=== PATIENT | female | born 1950 | race Caucasian/White ===

== ENCOUNTER → 2016-09-23 | Outpatient (CLI) | payer BC ==
[~2016-09-23] MED LIST: DENOSUMAB 60 MG/ML 1 ML SYRINGE SQ ONE
== END | disposition home or self-care (01) ==
LOC: PROCWHC3 10:18
PROVIDERS: ATTEND Family Medicine
DX: M81.0 Age-related osteoporosis without current pathological fracture (principal)
CPT/HCPCS: 96372; J0897

== ENCOUNTER → 2017-03-24 | Outpatient (CLI) | payer BC ==
[2017-03-24 10:35] VITALS: BP 143/72; PULSE 77; RESP 18; TEMP 98.4
== END | disposition home or self-care (01) ==
LOC: PROCWHC3 10:24
PROVIDERS: ATTEND Family Medicine
DX: M81.0 Age-related osteoporosis without current pathological fracture (principal)
CPT/HCPCS: 96372; J0897

== ENCOUNTER → 2017-08-04 | Day surgery (SDC) | payer BC ==
[2017-08-02 10:26] VITALS: BMI 24.7
[~2017-08-04] MED LIST changes: -DENOSUMAB 60 MG/ML 1 ML SYRINGE SQ ONE; +LACTATED RINGERS 1,000 ML IV ONE; +LACTATED RINGERS 1,000 ML IV SCH; +LIDOCAINE 1% 20 ML VIAL (10MG/ML) FOR IV START INTRADERMA PRN; +LIDOCAINE 1% INJ 10MG/ML (20 ML MDV) ONE; +PROPOFOL 10 MG/ML 20 ML VIAL IV ONE
[2017-08-04 07:48] VITALS: BP 136/78; PULSE 77; RESP 18; TEMP 98.1
--- NOTE | 2017-08-04 09:41 | PCN ---
PROCEDURE NOTE DATE OF SERVICE: 08/04/2017 BRIEF HISTORY: The patient is a 66-year-old pleasant white female, scheduled for an elective upper endoscopy as well as colonoscopy as part of evaluation of longstanding history of GERD and prior history of colon polyps. PROCEDURE PERFORMED: 1. EGD with biopsy. 2. Colonoscopy. PREOPERATIVE DIAGNOSES: 1. Gastroesophageal reflux disease. 2. History of colon polyps. ANESTHESIA: IV sedation per Anesthesia. DESCRIPTION OF PROCEDURE: After informed consent was obtained from the patient, she was brought to the endoscopy unit. IV conscious sedation was administered by Anesthesia and continuous monitoring. Initially upper endoscopy was done, the Olympus GIF-140 video endoscope was inserted into the mouth. Esophagus intubated without any difficulty and was gradually advanced into the stomach and duodenum and carefully examined. Bulb and the second part of the duodenum appeared normal. The scope at this time was withdrawn to the stomach, adequately insufflated with air and upon careful examination, the mucosa in the antrum had mild gastritis. Biopsies for H pylori were done. The body of the stomach appeared normal and on retroflexion the cardia and the fundus appeared normal. Scope was then withdrawn to the esophagus. The GE junction was located at 40 cm from the incisors. There were 2 superficial erosions consistent with LA grade A B reflux esophagitis. The rest of the esophagus appeared normal. The patient tolerated the procedure well. She continued to remain sedated. At this time, a colonoscopy was done. Initial digital rectal examination was normal. Olympus pediatric colonoscope was then inserted in the rectum, gradually advanced into the cecum without any difficulty and careful examination was performed as the scope was gradually being withdrawn. The ileocecal valve and appendiceal orifice were visualized and appeared normal. The prep was excellent. Mucosa of the cecum, ascending colon, transverse colon, descending colon, sigmoid colon, and rectum appeared normal. There were scattered sigmoid diverticulosis seen in the rectum. Retroflexion was performed. No lesions were noted. The patient tolerated the procedure well. IMPRESSION: 1. Upper endoscopy revealed mild antral gastritis and LA grade A B reflux esophagitis. 2. Colonoscopy with scattered sigmoid diverticulosis, but no evidence of colorectal neoplasia. RECOMMENDATIONS: Findings of this examination were discussed with the patient as well as her family. She was advised to follow up with the biopsy results. She can have a repeat surveillance colonoscopy in 5 years. MMODL / IJN: [id number] /
== END ==
LOC: ORWHC2ENDO 07:35
PROVIDERS: ATTEND Internal Medicine Gastroenterology
DX: Z12.11 Encounter for screening for malignant neoplasm of colon (principal); K57.30 Diverticulosis of large intestine without perforation or abscess without bleeding; K29.50 Unspecified chronic gastritis without bleeding; K21.9 Gastro-esophageal reflux disease without esophagitis; Z86.010 Personal history of colon polyps; Z79.2 Long term (current) use of antibiotics; Z79.82 Long term (current) use of aspirin; Z79.899 Other long term (current) drug therapy
CPT/HCPCS: 88305; 88342; 43239; J2001; J2704; G0105

== ENCOUNTER → 2017-08-25 | Outpatient (CLI) | payer MEDICARE, BC ==
--- NOTE | 2017-08-28 11:45 | MM ---
Reason for exam: screening (asymptomatic). Last mammogram was performed 1 year ago. History: Patient is postmenopausal. Benign excisional biopsy of the right breast, December 15, 1999. Excisional biopsy of the left breast. 2 excisional biopsies of the right breast. Took hormonal contraceptives for 8 years beginning at age 23. Took estrogen for 1 year beginning at age 49. Physical Findings: A clinical breast exam by your physician is recommended on an annual basis and results should be correlated with mammographic findings. MG 3D Screening Mammo W/Cad Bilateral CC and MLO view(s) were taken. Prior study comparison: August 11, 2016, bilateral MG screening mammo w CAD. August 10, 2015, bilateral MG screening mammo w CAD. The breast tissue is heterogeneously dense. This may lower the sensitivity of mammography. There is no discrete abnormality. No significant changes when compared with prior studies. ASSESSMENT: Negative, BI-RAD 1 RECOMMENDATION: Routine screening mammogram of both breasts in 1 year.
== END | disposition home or self-care (01) ==
LOC: RADMAMWWP 08:17
PROVIDERS: ATTEND Family Medicine
DX: Z12.31 Encounter for screening mammogram for malignant neoplasm of breast (principal)
CPT/HCPCS: 77063; 77067

== ENCOUNTER → 2017-09-26 | Outpatient (CLI) | payer MEDICARE, BC ==
[~2017-09-26] MED LIST changes: +DENOSUMAB 60 MG/ML 1 ML SYRINGE SQ NR; -LACTATED RINGERS 1,000 ML IV ONE; -LACTATED RINGERS 1,000 ML IV SCH; -LIDOCAINE 1% 20 ML VIAL (10MG/ML) FOR IV START INTRADERMA PRN; -LIDOCAINE 1% INJ 10MG/ML (20 ML MDV) ONE; -PROPOFOL 10 MG/ML 20 ML VIAL IV ONE
[2017-09-26 10:46] VITALS: BP 136/70; PULSE 67; RESP 16
== END | disposition home or self-care (01) ==
LOC: PROCWHC3 10:29
PROVIDERS: ATTEND Family Medicine
DX: M81.0 Age-related osteoporosis without current pathological fracture (principal)
CPT/HCPCS: 96372; J0897

== ENCOUNTER → 2018-01-26 | Outpatient (CLI) | payer MEDICARE, BC ==
--- NOTE | 2018-01-26 12:27 | XR ---
EXAMINATION TYPE: XR pelvis complete DATE OF EXAM: 01/26/2018 COMPARISON: NONE HISTORY: Nerve stimulator of the urinary bladder placement. TECHNIQUE: Frontal and lateral views of the pelvis were obtained. FINDINGS: There is no acute fracture/dislocation evident in the pelvis. The overlying soft tissue a ppears unremarkable. 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 Generator for a nerve stimula tor device is seen within the subcutaneous tissues overlying the posterior sacrum and right paracentr ally on the frontal image with its distal tip in the right paracentral presacral space. IMPRESSION: Right posterior lateral urinary bladder nerve stimulator with the generator superficially located and the distal lead in the right paracentral presacral space.
== END ==
LOC: RADXRMAIN 11:31
PROVIDERS: ATTEND Urology
DX: R39.15 Urgency of urination (principal)

== ENCOUNTER → 2018-03-28 | Outpatient (CLI) | payer MEDICARE, BC ==
[2018-03-28 11:13] VITALS: BP 118/72; PULSE 68; RESP 16; TEMP 97.8
== END | disposition home or self-care (01) ==
LOC: PROCWHC3 10:48
PROVIDERS: ATTEND Family Medicine
DX: M81.8 Other osteoporosis without current pathological fracture (principal)
CPT/HCPCS: 96372; J0897

== ENCOUNTER → 2018-09-10 | Outpatient (CLI) | payer MEDICARE, BC ==
--- NOTE | 2018-09-12 08:02 | MM ---
Reason for exam: screening (asymptomatic). Last mammogram was performed 1 year and 1 month ago. History: Patient is postmenopausal. Benign excisional biopsy of the right breast, December 15, 1999. Excisional biopsy of the left breast. 2 excisional biopsies of the right breast. Took hormonal contraceptives for 8 years beginning at age 23. Took estrogen for 1 year beginning at age 49. Physical Findings: A clinical breast exam by your physician is recommended on an annual basis and results should be correlated with mammographic findings. MG 3D Screening Mammo W/Cad Bilateral CC and MLO view(s) were taken. Prior study comparison: August 25, 2017, bilateral MG 3d screening mammo w/cad. August 11, 2016, bilateral MG screening mammo w CAD. The breast tissue is heterogeneously dense. This may lower the sensitivity of mammography. There is chronic nodularity bilaterally. There is no dominant lesion. There is no discrete abnormality. No significant changes when compared with prior studies. ASSESSMENT: Benign, BI-RAD 2 RECOMMENDATION: Routine screening mammogram of both breasts in 1 year.
== END | disposition home or self-care (01) ==
LOC: RADMAMWWP 13:11
PROVIDERS: ATTEND Family Medicine
DX: Z12.31 Encounter for screening mammogram for malignant neoplasm of breast (principal)
CPT/HCPCS: 77063; 77067

== ENCOUNTER → 2018-10-08 | Outpatient (CLI) | payer MEDICARE, BC ==
[~2018-10-08] MED LIST changes: -DENOSUMAB 60 MG/ML 1 ML SYRINGE SQ NR; +DENOSUMAB 60 MG/ML 1 ML SYRINGE SQ ONE
[2018-10-08 14:36] VITALS: BP 115/70; PULSE 80; RESP 16; TEMP 98.1
== END | disposition home or self-care (01) ==
LOC: PROCWHC3 14:00
PROVIDERS: ATTEND Family Medicine
DX: M81.0 Age-related osteoporosis without current pathological fracture (principal)
CPT/HCPCS: 96372; J0897

== ENCOUNTER → 2019-04-11 | Outpatient (CLI) | payer MEDICARE, BC ==
[2019-04-11 10:39] VITALS: BP 137/76; PULSE 71; RESP 15; TEMP 97.9
== END | disposition home or self-care (01) ==
LOC: PROCWHC3 10:31
PROVIDERS: ATTEND Family Medicine
DX: M81.0 Age-related osteoporosis without current pathological fracture (principal)
CPT/HCPCS: 96372; J0897

== ENCOUNTER → 2019-10-03 | Outpatient (CLI) | payer MEDICARE, BC ==
--- NOTE | 2019-10-04 08:26 | MM ---
Reason for exam: additional evaluation requested from abnormal screening. Last mammogram was performed less than 1 month ago. History: Patient is postmenopausal and has history of other cancer at age 69. Benign excisional biopsy of the right breast, December 15, 1999. Excisional biopsy of the left breast. 2 excisional biopsies of the right breast. Took hormonal contraceptives for 8 years beginning at age 23. Took estrogen for 1 year beginning at age 49. Physical Findings: Nurse did not find any significant physical abnormalities on exam. MG 3D Work Up W/Cad LT Spot compression CC, spot compression MLO, and ML view(s) were taken of the left breast. Prior study comparison: September 19, 2019, bilateral MG 3d screening mammo w/cad. September 10, 2018, bilateral MG 3d screening mammo w/cad. August 25, 2017, bilateral MG 3d screening mammo w/cad. August 11, 2016, bilateral MG screening mammo w CAD. August 10, 2015, bilateral MG screening mammo w CAD. June 21, 2012, bilateral digital screening mammo w/CAD. The breast tissue is heterogeneously dense. This may lower the sensitivity of mammography. Central 12 o'clock area of focal asymmetry becomes less defined on spot 3D with an appearance similar to prior exams. Precautionary 6 month follow up recommended. These results were verbally communicated with the patient and result sheet given to the patient on 10/03/19. ASSESSMENT: Probably benign, BI-RAD 3 RECOMMENDATION: Follow-up diagnostic mammogram of the left breast in 6 months.
== END | disposition home or self-care (01) ==
LOC: RADMAMWWP 14:47
PROVIDERS: ATTEND Family Medicine
DX: R92.8 Other abnormal and inconclusive findings on diagnostic imaging of breast (principal)
CPT/HCPCS: 77065; G0279; 77061

== ENCOUNTER → 2019-10-14 | Outpatient (CLI) | payer MEDICARE, BC ==
[~2019-10-14] MED LIST changes: +DENOSUMAB 60 MG/ML 1 ML SYRINGE SQ NR; -DENOSUMAB 60 MG/ML 1 ML SYRINGE SQ ONE
[2019-10-14 10:48] VITALS: BP 121/70; PULSE 73; RESP 18; TEMP 98
== END | disposition home or self-care (01) ==
LOC: PROCWHC3 10:30
PROVIDERS: ATTEND Family Medicine
DX: M81.0 Age-related osteoporosis without current pathological fracture (principal)
CPT/HCPCS: 96372

== ENCOUNTER → 2020-01-28 | Outpatient (CLI) | payer MEDICARE, BC ==
[2020-01-28 16:30] LABS: Potassium 4.5 mmol/L (3.5-5.1)
[2020-01-28 16:31] LABS: African American GFR (CKD) >90 (>60 ml/min/1.73 sqM); Anion Gap 6 mmol/L; Blood Urea Nitrogen 24 mg/dL (7-17); Carbon Dioxide 29 mmol/L (22-30); Chloride 102 mmol/L (98-107); Glucose 93 mg/dL (74-99); Non-African American GFR(CKD) >90 (>60 ml/min/1.73 sqM); Sodium 137 mmol/L (137-145)
--- NOTE | 2020-01-29 08:07 | CT ---
EXAMINATION TYPE: CT urogram wo/w con DATE OF EXAM: 01/28/2020 HISTORY: Hematuria. CT DLP: 912.4mGycm Automated Exposure Control for Dose Reduction was Utilized. CONTRAST: CT scan of the abdomen and pelvis is performed without oral and without and with IV Contrast, patient injected with 100ml mL of Isovue 300. Urogram protocol with 3-D reconstructed images created on a in dependent workstation and reviewed. COMPARISON: None. FINDINGS: KUB: Noncontrast images show no renal calculi bilaterally. Postcontrast images show symmetrical joint uptake and excretion without hydronephrosis seen bilaterally. There is subcentimeter 4 mm hypodense focus laterally left kidney series 10 image 35 2 small to further characterize presumed benign. Visua lized portion of both ureters show slight tortuous course without obstructing mass or calculus. Bladd er not greatly distended without suspicious mass or wall thickening. LUNG BASES: Dependent atelectasis. LIVER/GB: No significant abnormality is appreciated. PANCREAS: No significant abnormality is seen. SPLEEN: No significant abnormality is seen. ADRENALS: No significant abnormality is seen. BOWEL: Left and Sigmoid colonic diverticulosis. Persistent bowel dilatation. UTERUS/ADNEXA: Uterus surgically absent or markedly atrophic. Surgical clips presacral region noted. LYMPH NODES: No greater than 1cm abdominal or pelvic lymph nodes are appreciated. OSSEOUS STRUCTURES: Grade 1 anterolisthesis L4 on L5. Mild disc space narrowing L3-L4 and L4-L5 level s. Posterior disc herniations L4-L5 and L5-S1 level effacing anterior thecal sac. OTHER: No significant additional abnormality is seen. IMPRESSION: Source of hematuria is not identified.
== END | disposition home or self-care (01) ==
LOC: RADCTMAIN 15:51
PROVIDERS: ATTEND Urology
DX: R31.29 Other microscopic hematuria (principal)
CPT/HCPCS: 80048; 74178; 36415; 74400; Q9967

== ENCOUNTER → 2020-03-23 | Outpatient (CLI) | payer MEDICARE, BC ==
--- NOTE | 2020-03-23 15:06 | MM ---
Reason for exam: follow-up at short interval from prior study. Last mammogram was performed 6 months ago. History: Patient is postmenopausal and has history of other cancer at age 69. Benign excisional biopsy of the right breast, December 15, 1999. Excisional biopsy of the left breast. 2 excisional biopsies of the right breast. Took hormonal contraceptives for 8 years beginning at age 23. Took estrogen for 1 year beginning at age 49. Physical Findings: Nurse did not find any significant physical abnormalities on exam. MG 3D Diag Mammo W/Cad LT CC and MLO view(s) were taken of the left breast. Prior study comparison: October 03, 2019, left breast MG 3d work up w/cad LT. September 19, 2019, bilateral MG 3d screening mammo w/cad. The breast tissue is heterogeneously dense. This may lower the sensitivity of mammography. Finding: There is stable architectural distortion in the middle, central position of the left breast consistent with known excisional changes. Asymmetric breast tissue in the left breast is stable. There is no discrete abnormality. These results were verbally communicated with the patient and result sheet given to the patient on 03/23/20. ASSESSMENT: Benign, BI-RAD 2 RECOMMENDATION: Return to routine screening mammogram schedule for both breasts. Back on schedule.
== END | disposition home or self-care (01) ==
LOC: RADMAMWWP 08:15
PROVIDERS: ATTEND Family Medicine
DX: R92.8 Other abnormal and inconclusive findings on diagnostic imaging of breast (principal)
CPT/HCPCS: 77065; G0279; 77061

== ENCOUNTER → 2020-06-05 | Outpatient (CLI) | payer MEDICARE, BC ==
[~2020-06-05] MED LIST changes: -DENOSUMAB 60 MG/ML 1 ML SYRINGE SQ NR; +DENOSUMAB 60 MG/ML 1 ML SYRINGE SQ ONE
[2020-06-05 11:37] VITALS: BP 120/67; PULSE 63; RESP 16; TEMP 98
== END | disposition home or self-care (01) ==
LOC: PROCWHC3 11:27
PROVIDERS: ATTEND Family Medicine
DX: M81.8 Other osteoporosis without current pathological fracture (principal)
CPT/HCPCS: 96372; J0897

== ENCOUNTER → 2020-10-29 | Outpatient (CLI) | payer MEDICARE, BC ==
--- NOTE | 2020-11-02 11:08 | MM ---
Reason for exam: screening (asymptomatic). Last mammogram was performed 7 months ago. History: Patient is postmenopausal and has history of other cancer at age 69. Benign excisional biopsy of the right breast, December 15, 1999. Excisional biopsy of the left breast. 2 excisional biopsies of the right breast. Took hormonal contraceptives for 8 years beginning at age 23. Took estrogen for 1 year beginning at age 49. Physical Findings: A clinical breast exam by your physician is recommended on an annual basis and results should be correlated with mammographic findings. MG 3D Screening Mammo W/Cad Bilateral CC and MLO view(s) were taken. Prior study comparison: March 23, 2020, left breast MG 3d diag mammo w/cad LT. October 03, 2019, left breast MG 3d work up w/cad LT. The breast tissue is heterogeneously dense. This may lower the sensitivity of mammography. No significant changes when compared with prior studies. ASSESSMENT: Benign, BI-RAD 2 RECOMMENDATION: Routine screening mammogram of both breasts in 1 year.
== END | disposition home or self-care (01) ==
LOC: RADMAMWWP 12:41
PROVIDERS: ATTEND Family Medicine
DX: Z12.31 Encounter for screening mammogram for malignant neoplasm of breast (principal)
CPT/HCPCS: 77063; 77067

== ENCOUNTER → 2020-11-10 | Outpatient (CLI) | payer MEDICARE, BC ==
--- NOTE | 2020-11-10 15:57 | XR ---
EXAMINATION TYPE: XR cervical spine 3 views, XR thoracic spine 3 views DATE OF EXAM: 11/10/2020 Comparison: None Clinical History: 70-year-old female R52 pain Findings: Cervical spine: Hypertrophic facet arthropathy, left greater than right. Moderate disc that simply degenerative conrad e C6-C7 and mild at additional levels. Straightening of the normal cervical lordosis with preserved a lignment. No predental space widening or prevertebral soft tissue swelling. Normal odontoid view. Thoracic spine: 12 rib-bearing thoracic vertebral bodies. All pedicles are visualized. Mild degenerative disc disease mid thoracic spine. Vertebral body heights are preserved. Degenerative grade 1 anterolisthesis at T1 -T2. Otherwise, alignment is maintained. IMPRESSION: 1. Cervical spine: Hypertrophic facet arthropathy, left greater than right. Moderate degenerative dis c disease C6-C7 and mild at additional levels. Straightening of the normal cervical lordosis could be positional or due to muscle spasm. No malalignment. 2. Thoracic spine: Degenerative grade 1 anterolisthesis at T1-T2. Mild degenerative disc disease midt horacic spine. No vertebral compression glass.
== END | disposition home or self-care (01) ==
LOC: RADXRMAIN 13:06
PROVIDERS: ATTEND Family Medicine
DX: M50.323 Other cervical disc degeneration at C6-C7 level (principal); M51.34 Other intervertebral disc degeneration, thoracic region; M43.14 Spondylolisthesis, thoracic region; M47.812 Spondylosis without myelopathy or radiculopathy, cervical region
CPT/HCPCS: 72040; 72070

== ENCOUNTER → 2020-12-07 | Outpatient (CLI) | payer MEDICARE, BC ==
[~2020-12-07] MED LIST changes: +DENOSUMAB 60 MG/ML 1 ML SYRINGE SQ NR; -DENOSUMAB 60 MG/ML 1 ML SYRINGE SQ ONE
[2020-12-07 09:17] VITALS: BP 121/73; PULSE 75; RESP 16; TEMP 98.5
== END | disposition home or self-care (01) ==
LOC: PROCWHC3 09:03
PROVIDERS: ATTEND Family Medicine
DX: M81.0 Age-related osteoporosis without current pathological fracture (principal)
CPT/HCPCS: 96372; J0897

== ENCOUNTER → 2020-12-12 | Outpatient (CLI) | payer MEDICARE, BC ==
--- NOTE | 2020-12-12 13:21 | XR ---
EXAMINATION TYPE: XR pelvis AP view DATE OF EXAM: 12/12/2020 COMPARISON: NONE HISTORY: Hematuria The osseous structures are intact and the joint spaces are preserved. No acute fracture is seen. Vi sualized bowel gas pattern is nonspecific. Stimulator device seen in the pelvis with a single lead a nd portions of the second lead noted. Correlate clinically. Arthropathy of the hips correlate for fem oral acetabular impingement. Calcifications in the pelvis likely vascular. IMPRESSION: 1. Arthropathy of the hips correlate for femoral acetabular impingement. There is a stimulator device seen in the pelvis extending into the pelvis. Portion of another lead is seen in the right hemipelvi s and should be correlated clinically..
== END | disposition home or self-care (01) ==
LOC: RADXRMAIN 11:33
PROVIDERS: ATTEND Urology
DX: M12.851 Other specific arthropathies, not elsewhere classified, right hip (principal); M12.852 Other specific arthropathies, not elsewhere classified, left hip
CPT/HCPCS: 72170

== ENCOUNTER → 2021-06-14 | Outpatient (CLI) | payer MEDICARE, BC ==
[2021-06-14 11:07] VITALS: BP 147/69; PULSE 68; RESP 16; TEMP 98.3
== END ==
LOC: PROCWHC3 10:40
PROVIDERS: ATTEND Family Medicine
DX: M81.0 Age-related osteoporosis without current pathological fracture (principal)
CPT/HCPCS: 96372; J0897

== ENCOUNTER → 2021-11-02 | Outpatient (CLI) | payer MEDICARE, BC ==
--- NOTE | 2021-11-03 08:34 | MM ---
Reason for exam: screening (asymptomatic). Last mammogram was performed 1 year ago. History: Patient is postmenopausal and has history of other cancer at age 69. Benign excisional biopsy of the right breast, December 15, 1999. Excisional biopsy of the left breast. 2 excisional biopsies of the right breast. Took hormonal contraceptives for 8 years beginning at age 23. Took estrogen for 1 year beginning at age 49. Physical Findings: A clinical breast exam by your physician is recommended on an annual basis and results should be correlated with mammographic findings. MG 3D Screening Mammo W/Cad Bilateral CC and MLO view(s) were taken. Prior study comparison: October 29, 2020, bilateral MG 3d screening mammo w/cad. March 23, 2020, left breast MG 3d diag mammo w/cad LT. The breast tissue is heterogeneously dense. This may lower the sensitivity of mammography. There are benign appearing round calcifications bilaterally. There is no discrete abnormality. ASSESSMENT: Benign, BI-RAD 2 RECOMMENDATION: Routine screening mammogram of both breasts in 1 year.
== END | disposition home or self-care (01) ==
LOC: RADMAMWWP 08:09
PROVIDERS: ATTEND Family Medicine
DX: Z12.31 Encounter for screening mammogram for malignant neoplasm of breast (principal); Z78.0 Asymptomatic menopausal state
CPT/HCPCS: 77063; 77067

== ENCOUNTER → 2021-12-14 | Outpatient (CLI) | payer MEDICARE, BC ==
[2021-12-14 11:02] VITALS: BP 124/73; PULSE 69; RESP 18; TEMP 98.3
== END ==
LOC: PROCWHC3 10:28
PROVIDERS: ATTEND Physician Assistant
DX: M81.0 Age-related osteoporosis without current pathological fracture (principal)
CPT/HCPCS: 96372; J0897

== ENCOUNTER → 2022-06-23 | Outpatient (CLI) | payer MEDICARE, BC ==
[2022-06-23 13:50] VITALS: BP 137/75; PULSE 80; RESP 16; TEMP 97.5
== END ==
LOC: PROCWHC3 13:36
PROVIDERS: ATTEND Family Medicine
DX: M81.0 Age-related osteoporosis without current pathological fracture (principal)
CPT/HCPCS: 96372; J0897

== ENCOUNTER 2022-08-30 06:50 | Day surgery (SDC) | payer MEDICARE, BC ==
[2022-08-25 13:37] VITALS: BMI 22.1
[~2022-08-30 06:50] MED LIST changes: -DENOSUMAB 60 MG/ML 1 ML SYRINGE SQ NR; +LACTATED RINGERS 1,000 ML IV SCH; +LIDOCAINE 1% (10MG/ML) FOR IV START INTRADERMA PRN
[2022-08-30 07:18] VITALS: RESP 16; TEMP 97
[2022-08-30 07:24] LABS: Glucose,Whole Blood 105 mg/dL (70-110)
[2022-08-30] MEDS ORDERED: fentaNYL (PF) 50 MCG/ML 2 ML AMP ONE (08:03)
[2022-08-30] MEDS ORDERED: MIDAZOLAM 2 MG/2 ML VIAL ONE (08:03)
[2022-08-30] MEDS ORDERED: PROPOFOL 10 MG/ML 20 ML VIAL IV ONE (08:03)
[2022-08-30] MEDS ORDERED: LIDOCAINE 2% INJ 20 MG/ML (2 ML VIAL) ONE (08:03)
--- NOTE | 2022-08-30 08:35 | P.PCN ---
Date of Procedure: 08/30/22 Procedure(s) Performed: Brief history: Patient is a pleasant 71-year-old white female scheduled for an elective upper endoscopy as well as colonoscopy as a part of evaluation of GERD and prior history of colon polyps. Procedure performed: Esophagogastroduodenoscopy with biopsy Colonoscopy Preoperative diagnosis: GERD History of colon polyps Anesthesia: MAC Procedure: After informed consent was obtained from the patient was brought into the endoscopy unit and IV sedation was administered by anesthesia under continuous monitoring. Initially upper endoscopy was done. The Olympus GF 160 video endoscope was inserted inserted into the mouth and esophagus intubated without any difficulty and was gradually advanced into the stomach and duodenum and carefully examined. The bulb and second part of the duodenum appeared normal. The scope was then withdrawn into the stomach adequately insufflated with air and upon careful examination the antrum had mild mottling of the mucosa consistent gastritis. Mucosa of the body, cardia and fundus appeared normal. The scope was then withdrawn into the esophagus. The GE junction was located at 39 cm to the incisors. It appeared regular with no erythema erosions or ulcerations. Rest of the esophagus appeared normal. Patient tolerated the procedure well. At this time the patient continued to remain sedation. Initial digital rectal examination was normal. Olympus CF 160 video pediatric colonoscope was then inserted into the rectum and gradually advanced to the cecum without any difficulty. Careful examination was performed as the scope was gradually being withdrawn. The prep was excellent. The cecum, ascending colon, transverse colon, descending colon, sigmoid colon and rectum appeared normal. At her sigmoid diverticulosis. Retroflexion was performed in the rectum and no lesions were noted. Patient tolerated the procedure well. Impression: 1. Upper endoscopy revealed mild antral gastritis but no evidence of esophagitis 2. Colonoscopy revealed scattered sigmoid diverticulosis but no evidence of colorectal neoplasia Recommendations: Findings of this examination were discussed with the patient as well as her family. She was advised to increase the Pepcid to 20 mg twice daily and follow antireflux measures. Recommend repeat screening colonoscopy in 10 years.
[2022-08-30 08:41] VITALS: PULSE 80
[2022-08-30 08:59] VITALS: BP 138/84
== END 2022-08-30 09:25 | disposition home or self-care (01) ==
LOC: ORWHC2ENDO 06:50
PROVIDERS: ATTEND Internal Medicine Gastroenterology
DX: Z12.11 Encounter for screening for malignant neoplasm of colon (principal); K21.9 Gastro-esophageal reflux disease without esophagitis; K29.50 Unspecified chronic gastritis without bleeding; K57.30 Diverticulosis of large intestine without perforation or abscess without bleeding; E78.5 Hyperlipidemia, unspecified; E11.9 Type 2 diabetes mellitus without complications; Z86.010 Personal history of colon polyps; Z79.899 Other long term (current) drug therapy
CPT/HCPCS: 88305; 43239; G0105; J2250; J3010; J2704; J2001; 45378

== ENCOUNTER → 2022-11-03 | Outpatient (CLI) | payer MEDICARE, BC ==
--- NOTE | 2022-11-04 08:56 | MM ---
Reason for Exam: Screening (asymptomatic). Last screening mammogram was performed 12 month(s) ago. Patient History: Menarche at age 15. First Full-Term at age 20. Hysterectomy at age 31. Postmenopausal. Other cancer, age 69. Estrogen for 1 year from age 49 until age 50. Hormonal Contraceptives for 8 years from age 23 until age 31. Excisional Biopsy on the Right side. Excisional Biopsy on the Right side. Excisional Biopsy on the Left side. 12/15/1999, Benign Excisional Biopsy on the right side. Risk Values: Kyra 5 year model risk: 1.9%. NCI Lifetime model risk: 5.5%. Prior Study Comparison: 03/23/2020 Left Diagnostic Mammogram, [facility]. 10/29/2020 Bilateral Screening Mammogram, [facility]. 11/02/2021 Bilateral Screening Mammogram, [facility]. Tissue Density: The breast tissue is heterogeneously dense. This may lower the sensitivity of mammography. Findings: Analyzed By CAD. There is no suspicious group of microcalcifications or new suspicious mass in either breast. Benign-appearing round calcifications bilaterally. Overall Assessment: Benign, BI-RAD 2 Management: Screening Mammogram of both breasts in 1 year. A clinical breast exam by your physician is recommended on an annual basis and results should be correlated with mammographic findings. Electronically signed and approved by: Kiran Mcmullen D.O.
== END | disposition home or self-care (01) ==
LOC: RADMAMWWP 08:00
PROVIDERS: ATTEND Family Medicine
DX: Z12.31 Encounter for screening mammogram for malignant neoplasm of breast (principal); Z78.0 Asymptomatic menopausal state; Z98.890 Other specified postprocedural states
CPT/HCPCS: 77063; 77067

== ENCOUNTER → 2022-12-14 | Outpatient (CLI) | payer MEDICARE, BC ==
--- NOTE | 2022-12-14 18:40 | BD ---
EXAMINATION TYPE: Axial Bone Density DATE OF EXAM: 12/14/2022 CLINICAL HISTORY: 72 years old Female. ICD-10 CODE: M81.0 AGE-RELATED OSTEOPOROSIS W/O CURRENT PATHO LOGICAL FRAC Height: 5 ft 2 in Weight: 127 FRAX RISK QUESTIONS: Alcohol (3 or more units per day): no Family History (Parent hip fracture): no Glucocorticoids (More than 3mos): NO (Ex: prednisone, prednisolone, methylprednisolone, dexamethasone, and hydrocortisone). History of Fracture in Adulthood: NO Secondary Osteoporosis: 1. Type 1 Diabetes: TYPE 2 2. Hyperthyroidism: NO 3. Menopause before 45: NO 4. Malnutrition: NO 5. Chronic liver disease: NO Rheumatoid Arthritis: NO Current Tobacco Use: NO RISK FACTORS HISTORY OF: Surgery to Spine/Hip(right/left)/Wrist (right/left): no Family History of Osteoporosis: no Active: yes Diet low in dairy products/other sources of calcium: no Postmenopausal woman: yes Take estrogen and/or progesterone medications: no Lost more than 2 inches in height since high school: no Frequent falls: no Poor Health: good Hyperparathyroidism: no Adrenal Insufficiency: no MEDICATIONS: Osteoporosis Medications: yes Which medication: prolia How Long: four years Additional Medications: Prolia, metformin, Atorvastatin,Pepcid , baclofen, Additional History: EXAM MEASUREMENTS: Bone mineral densitometry was performed using the Med ePad System. Bone mineral density as measured about the Lumbar spine is: ----- L1-L4(G/cm2): 1.223 T Score Values are as follows: ----- L1: -0.5 ----- L2: -0.6 ----- L3: 0.7 ----- L4: 1.4 ----- L1-L4: 0.4 Z Score Values are as follows: ----- L1: 1.4 ----- L2: 1.3 ----- L3: 2.6 ----- L4: 3.3 ----- L1-L4: 2.3 prev done [facility] Bone mineral density about the R hip (g/cm2): 0.686 Bone mineral density about the L hip (g/cm2): 0.691 T Score values are as follows: -----R Neck: -2.5 -----L Neck: -2.5 -----R Total: -2.0 -----L Total: -1.7 Z Score values are as follows: -----R Neck: -0.7 -----L Neck: -0.6 -----R Total: -0.4 -----L Total: -0.1 prev done at [facility] FRAX%s: The graph provided illustrates a 14.6 % chance for a major osteoporotic fx and a 4.0 % chance for the hips probability for fx in 10 years time. IMPRESSION: Osteoporosis (T Score less than -2.5). There is increased fracture risk and therapy is usually indicated based on age. Re-Screen 1-2 years. NOTE: T-SCORE=SD OF THE YOUNG ADULT MEAN.
== END | disposition home or self-care (01) ==
LOC: RADBDWWP 07:09
PROVIDERS: ATTEND Family Medicine
DX: M81.0 Age-related osteoporosis without current pathological fracture (principal)
CPT/HCPCS: 77080

== ENCOUNTER → 2022-12-23 | Outpatient (CLI) | payer MEDICARE, BC ==
[~2022-12-23] MED LIST changes: +DENOSUMAB 60 MG/ML 1 ML SYRINGE SQ NR; -LACTATED RINGERS 1,000 ML IV SCH; -LIDOCAINE 1% (10MG/ML) FOR IV START INTRADERMA PRN
[2022-12-23 10:14] VITALS: BP 144/83; PULSE 78; RESP 16; TEMP 97.8
== END ==
LOC: PROCWHC3 09:59
PROVIDERS: ATTEND Family Medicine
DX: C79.51 Secondary malignant neoplasm of bone (principal); C79.52 Secondary malignant neoplasm of bone marrow; M81.0 Age-related osteoporosis without current pathological fracture
CPT/HCPCS: 96372; J0897

== ENCOUNTER → 2023-06-30 | Outpatient (CLI) | payer MEDICARE, BC ==
[2023-06-30 11:22] VITALS: BP 139/74; PULSE 72; RESP 16; TEMP 97.7
== END ==
LOC: PROCWHC3 10:45
PROVIDERS: ATTEND Family Medicine
DX: M81.0 Age-related osteoporosis without current pathological fracture (principal)
CPT/HCPCS: 96372; J0897

== ENCOUNTER → 2023-11-06 | Outpatient (CLI) | payer MEDICARE, BC ==
--- NOTE | 2023-11-09 08:47 | MM ---
Reason for Exam: Screening (asymptomatic). Last screening mammogram was performed 12 month(s) ago. Patient History: Menarche at age 15. First Full-Term at age 20. Hysterectomy at age 31. Postmenopausal. Other cancer, age 69. Estrogen for 1 year from age 49 until age 50. Hormonal Contraceptives for 8 years from age 23 until age 31. Excisional Biopsy on the Right side. Excisional Biopsy on the Right side. Excisional Biopsy on the Left side. 12/15/1999, Benign Excisional Biopsy on the right side. Risk Values: Kyra 5 year model risk: 1.9%. NCI Lifetime model risk: 5.2%. Prior Study Comparison: 10/29/2020 Bilateral Screening Mammogram, [facility]. 11/02/2021 Bilateral Screening Mammogram, [facility]. 11/03/2022 Bilateral MG 3D screening mammo w/cad, [facility]. Tissue Density: The breasts are heterogeneously dense, which may obscure small masses. Findings: Analyzed By CAD. There is no suspicious group of microcalcifications or new suspicious mass in either breast. Benign appearing calcifications. Overall Assessment: Benign, BI-RAD 2 Management: Screening Mammogram of both breasts in 1 year. . Patient should continue monthly self-breast exams. A clinical breast exam by your physician is recommended on an annual basis. This exam should not preclude additional follow-up of suspicious palpable abnormalities. Note on Kyra scores and lifetime risk: 1. A Kyra score greater than 3% is considered moderate risk. If this is the case, consider specialist referral to assess eligibility for a risk reducing agent. 2. If overall lifetime risk for the development of breast cancer is 20% or higher, the patient may qualify for future screening with alternating mammogram and breast MRI. Electronically signed and approved by: Torres Wilde M.D. Radiologis
== END | disposition home or self-care (01) ==
LOC: RADMAMWWP 10:17
PROVIDERS: ATTEND Family Medicine
DX: Z12.31 Encounter for screening mammogram for malignant neoplasm of breast (principal); Z78.0 Asymptomatic menopausal state
CPT/HCPCS: 77063; 77067

== ENCOUNTER → 2024-07-08 | Outpatient (CLI) | payer MEDICARE, BC ==
[2024-07-08] MEDS: DENOSUMAB 60 MG/ML 1 ML SYRINGE SQ ONE (14:04)
[2024-07-08 14:11] VITALS: BP 136/74; PULSE 106; RESP 17; TEMP 98
== END ==
LOC: PROCWHC3 13:25
PROVIDERS: ATTEND Family Medicine
DX: M81.0 Age-related osteoporosis without current pathological fracture (principal)
CPT/HCPCS: 96372; J0897

== ENCOUNTER → 2024-11-14 | Outpatient (CLI) | payer MEDICARE, BC ==
--- NOTE | 2024-11-14 14:24 | MM ---
Reason for Exam: Screening (asymptomatic). Last mammogram was performed 1 year(s) and 1 month(s) ago. Patient History: Menarche at age 15. First Full-Term at age 20. Hysterectomy at age 31. Postmenopausal. Other cancer, age 69. Estrogen for 1 year from age 49 until age 50. Hormonal Contraceptives for 8 years from age 23 until age 31. Excisional Biopsy on the Right side. Excisional Biopsy on the Right side. Excisional Biopsy on the Left side. 12/15/1999, Benign Excisional Biopsy on the right side. Risk Values: Kyra 5 year model risk: 1.9%. NCI Lifetime model risk: 5.0%. Prior Study Comparison: 11/02/2021 Bilateral Screening Mammogram, [facility]. 11/03/2022 Bilateral MG 3D screening mammo w/cad, [facility]. 11/06/2023 Bilateral MG 3D screening mammo w/cad, [facility]. Tissue Density: The breasts are heterogeneously dense, which may obscure small masses. Findings: Analyzed By CAD. There is no suspicious group of microcalcifications or new suspicious mass in either breast. Overall Assessment: Negative, BI-RAD 1 Management: Screening Mammogram of both breasts in 1 year. . Patient should continue monthly self-breast exams. A clinical breast exam by your physician is recommended on an annual basis. This exam should not preclude additional follow-up of suspicious palpable abnormalities. Note on Kyra scores and lifetime risk: 1. A Kyra score greater than 3% is considered moderate risk. If this is the case, consider specialist referral to assess eligibility for a risk reducing agent. 2. If overall lifetime risk for the development of breast cancer is 20% or higher, the patient may qualify for future screening with alternating mammogram and breast MRI. [facility], , 11/14/2024 2:21 PM. Electronically signed and approved by: Toan Fu M.D. Radiologis
== END | disposition home or self-care (01) ==
LOC: RADMAMWWP 13:42
PROVIDERS: ATTEND Family Medicine
DX: Z12.31 Encounter for screening mammogram for malignant neoplasm of breast (principal); R92.333 Mammographic heterogeneous density, bilateral breasts; Z78.0 Asymptomatic menopausal state; Z92.0 Personal history of contraception
CPT/HCPCS: 77063; 77067

== ENCOUNTER → 2024-12-19 | Outpatient (CLI) | payer MEDICARE, BC ==
--- NOTE | 2024-12-19 11:45 | BD ---
EXAMINATION TYPE: Axial Bone Density DATE OF EXAM: 12/19/2024 CLINICAL HISTORY: 74 years old Female. ICD-10 CODE: M81.0 AGE-RELATED OSTEOPOROSIS , Additional Hist ory: Height: 62" Weight: 133lbs FRAX RISK QUESTIONS: Alcohol (3 or more units per day): No Family History (Parent hip fracture): No Glucocorticoids (More than 3mos): No (Ex: prednisone, prednisolone, methylprednisolone, dexamethasone, and hydrocortisone). History of Fracture in Adulthood: No Secondary Osteoporosis: 1. Type 1 Diabetes: No 2. Hyperthyroidism: No 3. Menopause before 45: Yes 4. Malnutrition: No 5. Chronic liver disease: No Rheumatoid Arthritis: No Current Tobacco Use: No RISK FACTORS HISTORY OF: Hip Fracture (Right/Left): No Spine Fracture: No History of Wrist Fracture: No Surgery to Spine/Hip(right/left)/Wrist (right/left): No MEDICATIONS: Thyroid Medications: No Osteoporosis Medications: Yes Which medication: Prolia How Long: Possibly 6 years EXAM MEASUREMENTS: Bone mineral densitometry was performed using the [employer] System. Bone mineral density as measured about the Lumbar spine is: ----- L1-L4(G/cm2): 1.256 T Score Values are as follows: ----- L1: 0.1 ----- L2: -0.6 ----- L3: 1.0 ----- L4: 1.6 ----- L1-L4: 0.6 Z Score Values are as follows: ----- L1: 1.9 ----- L2: 1.3 ----- L3: 2.9 ----- L4: 3.4 ----- L1-L4: 2.5 Bone mineral density has: increase 2.7% since study of: 12/14/2022 Bone mineral density about the R hip (g/cm2): 0.766 Bone mineral density about the L hip (g/cm2): 0.793 T Score values are as follows: -----R Neck: -1.7 -----L Neck: -2.5 -----R Total: -1.9 -----L Total: -1.7 Z Score values are as follows: -----R Neck: 0.2 -----L Neck: -0.6 -----R Total: -0.2 -----L Total: 0.0 Bone mineral density has: increase 1.2% since study of: 12/14/2022 FRAX%s: The graph provided illustrates a 16.0% chance for a major osteoporotic fx and a 4.6% chance f or the hips probability for fx in 10 years time. IMPRESSION: Osteoporosis (T Score less than -2.5). There is increased fracture risk and therapy is usually indicated based on age. Re-Screen 1-2 years. NOTE: T-SCORE=SD OF THE YOUNG ADULT MEAN. [facility], , 12/19/2024 11:42 AM
== END | disposition home or self-care (01) ==
LOC: RADBDWWP 10:52
PROVIDERS: ATTEND Family Medicine
DX: M81.0 Age-related osteoporosis without current pathological fracture (principal); M85.89 Other specified disorders of bone density and structure, multiple sites
CPT/HCPCS: 77080

== ENCOUNTER → 2025-01-09 | Outpatient (CLI) | payer MEDICARE, BC ==
[~2025-01-09] MED LIST changes: -DENOSUMAB 60 MG/ML 1 ML SYRINGE SQ NR; +DENOSUMAB 60 MG/ML 1 ML SYRINGE SQ ONE
[2025-01-09 14:16] VITALS: BP 148/76; PULSE 83; RESP 16; TEMP 97.8
== END ==
LOC: PROCWHC3 14:11
PROVIDERS: ATTEND Family Medicine
DX: M81.0 Age-related osteoporosis without current pathological fracture (principal); C79.51 Secondary malignant neoplasm of bone; C79.52 Secondary malignant neoplasm of bone marrow
CPT/HCPCS: 96372; J0897

== ENCOUNTER → 2025-03-07 | Outpatient (CLI) | payer MEDICARE, BC ==
--- NOTE | 2025-03-07 12:51 | US ---
EXAMINATION TYPE: US venous doppler duplex LE LT DATE OF EXAM: 03/07/2025 12:37 PM COMPARISON: NONE CLINICAL INDICATION: Female, 74 years old with history of LEFT R60.1 GENERALIZED EDEMA I82.402 ACUTE EMBOLIS; LLE swelling x few months; Hx leaky valve, otherwise denies any other signs, symptoms, or re levant history TECHNIQUE: The lower extremity deep venous system is examined utilizing real time linear array sonog miya with graded compression, doppler sonography and color-flow sonography. Grayscale, color doppler , spectral doppler imaging performed of the deep veins of the lower extremities FINDINGS: SIDE PERFORMED: Left VESSELS IMAGED: Common Femoral Vein Deep Femoral Vein Greater Saphenous Vein * Femoral Vein Popliteal Vein Small Saphenous Vein * Proximal Calf Veins (* superficial vessels) Left Leg: Negative for DVT; There is normal flow, compressibility, vascular waveforms. IMPRESSION: 1. Left lower extremity ultrasound negative for deep venous thrombosis. [facility], , 03/07/2025 12:49 PM
== END | disposition home or self-care (01) ==
LOC: RADUSWWP 12:22
PROVIDERS: ATTEND Podiatrist Foot & Ankle Surgery
DX: I82.402 Acute embolism and thrombosis of unspecified deep veins of left lower extremity (principal); R60.1 Generalized edema